=== PATIENT | female | born 1945 | race Caucasian/White ===

== ENCOUNTER 2019-05-27 15:43 | Observation (INO) | payer MEDICARE, OTHER ==
[2019-05-27] MEDS ORDERED: Aspirin Chewable 81 MG TAB ONE (16:17)
[2019-05-27] MEDS ORDERED: Nitroglycerin 2% Ointment 1 INCH/1 GM Packet ONE (16:18)
[2019-05-27 16:22] LABS: #Eosinphils 0.3 thou/uL (0.0-0.7); #Lymphocytes 2.3 thou/uL (1.20-3.40); #Monocytes 0.6 thou/uL (0.11-0.59); #Neutrophils 4.1 thou/uL (1.40-6.50); %Basophils 0.5 % (0.0-1.0); %Eosinophils 4.2 % (0.0-10.0); %Lymphocytes 31.2 % (21.0-51.0); %Monocytes 7.8 % (0.0-10.0); %Neutrophils 56.4 % (42.0-75.0); Hemoglobin 15.1 g/dL (12.0-16.0); Mean Corpuscular HGB CONC 34.3 g/dL (32.0-36.0); Mean Corpuscular Hemoglobin 29.6 pg (27.0-31.0); Mean Corpuscular Volume 86.5 fL (78.0-98.0); Mean Platelet Volume 7.8 fL (7.4-10.4); Platelet Count 193 thou/uL (130-400); RBC Distribution Width 11.6 % (11.5-14.5); Red Blood Cell (RBC) Count 5.09 mill/uL (4.20-5.40); White Blood Cell (WBC) Count 7.3 thou/uL (4.8-10.8)
--- NOTE | 2019-05-27 16:25 | RAD ---
CHEST ONE VIEW: 05/27/19 HISTORY: Chest pain. Heart size is within normal limits. There are atherosclerotic changes of the aorta. The lungs are dayday ar of infiltrates. No significant bony findings. IMPRESSION: No active intrathoracic disease. Stable chest as compared to a 10/05/13 study. POS: CAROLYN
[2019-05-27 16:44] LABS: ALT (SGPT) 15 U/L (8-55); AST (SGOT) 13 U/L (5-34); Albumin 4.2 g/dL (3.4-4.8); Alkaline Phosphatase 89 U/L (40-110); Anion Gap 12 mmol/L (10-20); BUN (Urea Nitrogen) 14 mg/dL (9.8-20.1); Bilirubin, Total 0.3 mg/dL (0.2-1.2); Calc. Creatinine Clearance 0 mL/min (70-130); Calcium 9.7 mg/dL (7.8-10.44); Carbon Dioxide 27 mmol/L (23-31); Chloride 104 mmol/L (98-107); Estimated GFR-MDRD 73; Globulin 2.9 g/dL (2.4-3.5); Glucose 95 mg/dL (83-110); Protein, Total 7.1 g/dL (6.0-8.3); Sodium 139 mmol/L (136-145)
[2019-05-27] MEDS ORDERED: Nitroglycerin 0.4 MG TAB (25 Tab Bottle) PO PRN (17:22)
[2019-05-27] MEDS ORDERED: Lidocaine 2% Viscous Solution 10 ML, Aluminum & Magnesium Hydroxide 30 ML SSW PRN (17:28)
--- NOTE | 2019-05-27 18:05 | HP ---
PRIMARY CARE PROVIDER: Adi Aguilar MD The patient's public address system mechanic is Dr. Rubio. CHIEF COMPLAINT: Chest pain. HISTORY OF PRESENT ILLNESS: Ms. Briscoe is a pleasant 73-year-old lady, who was seen at [facility] on May 27, 2019. She reports that she sees Dr. Rubio, public address system mechanic. She had a stress test several years ago. She reports that yesterday she was watching television when she developed chest discomfort. She describes it as a burning sensation in the retrosternal region as well as extending to the left side of her chest, nonradiating, no known aggravating or relieving factors, 4/10 at its worst, currently 0/10 after receiving nitroglycerin paste, not accompanied by shortness of breath. She does report feeling slight lightheadedness while she was driving and had the pain. She presented to the emergency room because the pain has been on and off. REVIEW OF SYSTEMS: All systems were reviewed and found to be negative except for the pertinent positives mentioned above. PAST MEDICAL HISTORY: Gastroesophageal reflux disease and dyslipidemia. PAST SURGICAL HISTORY: Hand surgery, hysterectomy, and tonsillectomy. SOCIAL HISTORY: The patient denies tobacco use, alcohol use, or recreational drug use. CODE STATUS: I discussed her code status. She is full code. FAMILY HISTORY: Significant for heart disease in both parents. ALLERGIES: CELEBREX. CURRENT MEDICATIONS: 1. Estradiol 2 mg daily. 2. Ranitidine 150 mg daily. 3. Lipitor 10 mg daily. PHYSICAL EXAMINATION: GENERAL: On examination, Ms. Briscoe is awake and alert, not in acute distress. VITAL SIGNS: Blood pressure is 114/70, pulse 71, respiratory rate 19, and oxygen saturation 96% on room air. She is afebrile. EYES: No scleral icterus, no conjunctival pallor. ENT: Moist mucosal membranes. No oropharyngeal erythema or exudates. NECK: Supple, nontender, trachea is midline. RESPIRATORY: Accessory muscles of breathing are not active. Chest wall movements are symmetric bilaterally. LUNGS: Clear to auscultation without wheeze, rhonchi, or crepitations. CARDIOVASCULAR: S1 and S2 are heard, regular. Peripheral pulses palpable. No carotid bruit. No pericardial rub. ABDOMEN: Soft, nontender, bowel sounds heard, no hepatomegaly, no splenomegaly. NEUROLOGIC: Cranial nerves 2 through 12 are intact. MUSCULOSKELETAL: Power is 5/5 in all 4 extremities. There is no reproducible chest wall tenderness. SKIN: No rashes or subcutaneous nodules. LYMPHATIC: No cervical lymphadenopathy. PSYCHIATRIC: Normal mood, normal affect, the patient is oriented to person, place, and time. LABORATORY DATA: Ms. Briscoe's labs and investigations were reviewed. Electrocardiogram shows normal sinus rhythm, no ST changes to suggest an acute coronary syndrome. Chest x-ray did not show any pulmonary infiltrates. She has normal comprehensive metabolic profile, normal troponin-I and an unremarkable CBC. ASSESSMENT AND PLAN: Ms. Demi Briscoe is a pleasant 73-year-old lady, who was seen at [facility] on May 27, 2019. Her problem list includes: 1. Chest pain: She is presenting with atypical chest pain for cardiac etiology. However, she does report relief with nitroglycerin. She will be admitted to the hospital for further management. We will monitor her on telemetry. We will recheck troponin level. We will check stress test. We will also trial GI cocktail to cover possible gastrointestinal etiology. 2. Dyslipidemia: Continue statin. 3. Gastroesophageal reflux disease: Continue H2 clarissa. Trial GI cocktail. Many thanks for allowing me to participate in your patient's care. Please feel free to contact me with any questions or concerns. LEVEL OF RISK: Moderate. LEVEL OF COMPLEXITY: Moderate. Job ID: [id number]
[2019-05-27] MEDS ORDERED: Ondansetron PF 4 MG/2 ML Vial IVP PRN (18:46)
[2019-05-27] MEDS ORDERED: Ondansetron ODT 4 MG TAB SL PRN (18:46)
[2019-05-27] MEDS ORDERED: Acetaminophen 325 MG TAB PO PRN (18:46)
[2019-05-27 18:55] VITALS: BMI 27.9
[2019-05-27 19:36] LABS: Troponin I 0.023 ng/mL (< 0.028)
[2019-05-27] MEDS ORDERED: Atorvastatin Calcium 10 MG TAB PO SCH (21:00)
[2019-05-27 23:14] LABS: Troponin I Less than 0.010 ng/mL (< 0.028)
[2019-05-28] MEDS ORDERED: Estradiol 1 MG TAB PO SCH (09:00)
[2019-05-28] MEDS ORDERED: Famotidine 20 MG TAB PO SCH (09:00)
[2019-05-28] MEDS ORDERED: Atorvastatin Calcium 10 MG TAB PO SCH (09:00)
[2019-05-28 11:59] VITALS: BP 149/69; TEMP 97.4
--- NOTE | 2019-05-28 12:50 | NM ---
Nuclear medicine Cardiac myocardial perfusion SPECT Ejection fraction study Wall motion cine: DATE:05/28/2019 12:00 AM INDICATION: Chest pain TECHNIQUE: Number of days:2 Rest Study: Technetium 99m-sestamibi (Cardiolite) dose:10.30 mCi Stress study: Technetium 99m-sestamibi (Cardiolite) dose:27.70 mCi FINDINGS: Cardiac (myocardial perfusion) SPECT There are no reversible myocardial perfusion defects. Ejection fraction study Left ventricular EF = 94% Wall motion cine Normal wall motion and thickening IMPRESSION: No evidence of reversible myocardial ischemia.
--- NOTE | 2019-05-28 17:17 | DIS ---
DATE OF ADMISSION: 05/27/2019 DATE OF DISCHARGE: 05/28/2019 DISCHARGE DISPOSITION: Home. PRIMARY DISCHARGE DIAGNOSIS: Chest pain, which is noncardiac. SECONDARY DISCHARGE DIAGNOSES: Dyslipidemia and gastroesophageal reflux disease. PROCEDURES DONE DURING HOSPITALIZATION: Chest x-ray showed no acute intrathoracic disease. Nuclear stress test done showed no evidence of reversible ischemia. Wall motion was normal. Ejection fraction was 94% on the stress test. H and H 15 and 44, platelet count 193, and MCV is 86. Troponin x3 negative. BUN 14 and creatinine 0.7. DISCHARGE MEDICATIONS: Lipitor 10 mg p.o. daily, estradiol 1 mg p.o. daily, and ranitidine 150 mg p.o. daily. ALLERGIES: ALLERGIC TO CELECOXIB. DISCHARGE PLAN: The patient to follow up with her primary care physician in 1 week, it is Dr. Adi Aguilar. BRIEF COURSE DURING HOSPITALIZATION: The patient initially got admitted on the with complaints of chest discomfort while she was watching television. This was a burning sensation in the retrosternal area. She had some radiation to the left side of her chest. In view of this history, the patient was placed under observation on telemetry to rule out ACS. Three sets of troponin were negative. Nuclear stress test done showed no reversible ischemia. She has remained chest pain-free during her stay here. She was hemodynamically stable and ambulating prior to discharge. She needs to follow up with her primary care physician in 1 week. Please note, I have seen and examined the patient on the day of discharge. Job ID: [id number] MTDD
--- NOTE | 2019-06-03 14:42 | EKG ---
Test Reason : Blood Pressure : / mmHG Vent. Rate : 081 BPM Atrial Rate : 081 BPM P-R Int : 160 ms QRS Dur : 074 ms QT Int : 366 ms P-R-T Axes : 057 -08 036 degrees QTc Int : 425 ms Normal sinus rhythm Normal ECG Confirmed by HERLINDA YUEN DO ([id number]), content editor JOSHUA ALMONTE ([id number] on 06/03/2019 2:42:00 PM Referred By: Confirmed By:HERLINDA YUEN DO
== END 2019-05-28 13:58 | disposition home or self-care (01) ==
LOC: ERS 15:43 → 2SW 18:45
PROVIDERS: ADMIT Internal Medicine; ATTEND Internal Medicine
DX: R07.89 Other chest pain (principal); K21.9 Gastro-esophageal reflux disease without esophagitis; E78.5 Hyperlipidemia, unspecified; E78.00 Pure hypercholesterolemia, unspecified; Z79.899 Other long term (current) drug therapy; Z88.8 Allergy status to other drugs, medicaments and biological substances
CPT/HCPCS: 71045; 78452; 80053; 84484 ×2; 85025; 93005; 93017; 94760; 99285; A9500; G0378 ×3; 36415